=== PATIENT | female | born 1975 | race African-American/Black ===

== ENCOUNTER 2016-12-20 10:51 | Emergency (ER) | payer SELFPAY ==
[2016-12-20] MEDS ORDERED: ONDANSETRON 4 MG TAB.RAPDIS PO ONE (11:00)
[2016-12-20 11:27] LABS: ABSOLUTE EOSINOPHILS # (AUTO) 0.1 10^3/uL (0.0-0.6); ABSOLUTE LYMPHOCYTES (AUTO) 2.3 10^3/uL (0.5-4.7); ABSOLUTE MONOCYTES (AUTO) 0.5 10^3/uL (0.1-1.4); ABSOLUTE NEUT (AUTO) 5.7 10^3/uL (1.7-8.2); BASOPHILS % (AUTO) 0.2 % (0-2); EOSINOPHILS % (AUTO) 0.6 % (0-6); HEMATOCRIT 39.5 % (36.0-47.0); HEMOGLOBIN 12.5 g/dL (12.0-15.5); LYMPHOCYTES % (AUTO) 27.3 % (13-45); MEAN CORPUSCULAR HGB CONC 31.6 g/dL (32.0-36.0); MEAN CORPUSCULAR VOLUME 73 fl (80-97); MONOCYTES % (AUTO) 5.6 % (3-13); RED BLOOD COUNT 5.43 10^6/uL (3.72-5.28); SEGMENTED NEUTROPHILS % (AUTO) 66.3 % (42-78); WHITE BLOOD COUNT 8.6 10^3/uL (4.0-10.5)
[2016-12-20 11:45] LABS: ALANINE AMINOTRANSFERASE 26 U/L (9-52); ALBUMIN 4.2 g/dL (3.5-5.0); ALKALINE PHOSPHATASE 64 U/L (38-126); ANION GAP 13 (5-19); ASPARTATE AMINO TRANSFERASE 17 U/L (14-36); BILIRUBIN,DIRECT 0.3 mg/dL (0.0-0.4); BILIRUBIN,TOTAL 0.5 mg/dL (0.2-1.3); BLOOD UREA NITROGEN 5 mg/dL (7-20); CALCIUM 9.1 mg/dL (8.4-10.2); CARBON DIOXIDE 25 mmol/L (22-30); CHLORIDE 102 mmol/L (98-107); CREATININE RESULT 0.68 mg/dL (0.52-1.25); GLUCOSE 135 mg/dL (75-110); LIPASE 70.3 U/L (23-300); POTASSIUM 4.1 mmol/L (3.6-5.0); SODIUM 139.5 mmol/L (137-145)
--- NOTE | 2016-12-20 11:50 | RADIOLOGY REPORT (SQ) ---
EXAM DESCRIPTION: KUB/ABDOMEN (SINGLE VIEW) COMPLETED DATE/TIME: 12/20/2016 11:33 am REASON FOR STUDY: abd pain COMPARISON: None. NUMBER OF VIEWS: One view. TECHNIQUE: Supine radiographic image of the abdomen acquired. LIMITATIONS: None. FINDINGS: BOWEL GAS PATTERN: Normal bowel gas pattern. No dilated loops. CALCIFICATIONS: No suspicious calcifications. SOFT TISSUES: No gross mass or suggestion of organomegaly. HARDWARE: Clips post bilateral tubal ligation BONES: No acute fracture. No worrisome bone lesions. OTHER: No other significant finding. IMPRESSION: NO RADIOGRAPHIC EVIDENCE FOR ACUTE ABDOMINAL DISEASE. TECHNICAL DOCUMENTATION: JOB ID: [id number] [employer]- All Rights Reserved
[2016-12-20 12:59] VITALS: BP 153/88
--- NOTE | 2016-12-20 13:02 | ER Document Report ---
ED General - General Chief Complaint: Abdominal Pain Stated Complaint: NAUSEA Time Seen by Provider: 12/20/16 11:00 TRAVEL OUTSIDE OF THE [place] IN LAST 30 DAYS: No - HPI Patient complains to provider of: Lower abdominal pain Notes: Patient is coming in for evaluation of lower abdominal pain and nausea. Patient states ongoing for the last 5 days. Patient denies being . Denies any recent travel denies any diarrhea. Patient states she is unable to remember what she had her last bowel movement. Patient denies fevers chills denies any recent antibiotics. Trauma - Related Data Allergies/Adverse Reactions: No Known Allergies Allergy (Verified 12/20/16 10:55) Past Medical History - Social History Smoking Status: Never Smoker Chew tobacco use (# tins/day): No Frequency of alcohol use: None Drug Abuse: None Family History: Reviewed & Not Pertinent Patient has suicidal ideation: No Patient has homicidal ideation: No - Past Medical History Cardiac Medical History: Denies: Hx Coronary Artery Disease, Hx Heart Attack, Hx Hypertension Pulmonary Medical History: Denies: Hx Asthma, Hx Bronchitis, Hx COPD, Hx Pneumonia Neurological Medical History: Denies: Hx Cerebrovascular Accident, Hx Seizures Renal/ Medical History: Denies: Hx Peritoneal Dialysis Musculoskeltal Medical History: Denies Hx Arthritis - Immunizations Hx Diphtheria, Pertussis, Tetanus Vaccination: Yes - 03/20/13 Review of Systems - Review of Systems Constitutional: No symptoms reported EENT: No symptoms reported Cardiovascular: No symptoms reported Respiratory: No symptoms reported Gastrointestinal: Abdominal pain Genitourinary: No symptoms reported Female Genitourinary: No symptoms reported Musculoskeletal: No symptoms reported Skin: No symptoms reported Hematologic/Lymphatic: No symptoms reported Neurological/Psychological: No symptoms reported Physical Exam - Vital signs Vitals: Temp Pulse Resp BP Pulse Ox 98.3 F 95 16 142/81 H 98 12/20/16 10:55 12/20/16 10:55 12/20/16 10:55 12/20/16 10:55 12/20/16 10:55 Interpretation: Normal - General General appearance: Appears well, Alert - HEENT Head: Normocephalic, Atraumatic Eyes: Normal Pupils: PERRL - Respiratory Respiratory status: No respiratory distress Chest status: Nontender Breath sounds: Normal Chest palpation: Normal - Cardiovascular Rhythm: Regular Heart sounds: Normal auscultation Murmur: No - Abdominal Inspection: Normal Distension: No distension Bowel sounds: Normal Tenderness: Nontender Organomegaly: No organomegaly - Back Back: Normal, Nontender - Extremities General upper extremity: Normal inspection, Nontender, Normal color, Normal ROM , Normal temperature General lower extremity: Normal inspection, Nontender, Normal color, Normal ROM , Normal temperature, Normal weight bearing. No: Humble's sign - Neurological Neuro grossly intact: Yes Cognition: Normal Orientation: AAOx4 Jayne Coma Scale Eye Opening: Spontaneous [place] Coma Scale Verbal: Oriented [place] Coma Scale Motor: Obeys Commands [place] Coma Scale Total: 15 Speech: Normal Motor strength normal: LUE, RUE, LLE, RLE Sensory: Normal - Psychological Associated symptoms: Normal affect, Normal mood - Skin Skin Temperature: Warm Skin Moisture: Dry Skin Color: Normal Course - Re-evaluation Re-evalutation: 12/20/16 18:42 The patient presents with abdominal pain without signs of peritonitis or other life-threatening or serious etiology. The patient appears stable for discharge and has been instructed to return immediately if the symptoms worsen in any way , or in 8-12hr if not improved for re-evaluation. The patient has been instructed to return if the symptoms worsen or change in any way. Patient x- ray does show constipation will give laxatives and nausea medication. Patient will be discharged home. - Vital Signs Vital signs: Temp Pulse Resp BP Pulse Ox 98.0 F 64 18 153/88 H 100 12/20/16 12:56 12/20/16 12:56 12/20/16 12:56 12/20/16 12:56 12/20/16 12:56 - Laboratory Result Diagrams: 12/20/16 11:09 12/20/16 11:09 Laboratory results interpreted by me: 12/20/16 12/20/16 11:09 11:09 RBC 5.43 H MCV 73 L MCH 23.0 L MCHC 31.6 L RDW 15.0 H BUN 5 L Glucose 135 H Discharge - Discharge Clinical Impression: Constipation Qualifiers: Constipation type: unspecified constipation type Qualified Code(s): K59.00 - Constipation, unspecified Abdominal pain Qualifiers: Abdominal location: unspecified location Qualified Code(s): R10.9 - Unspecified abdominal pain Condition: Good Disposition: HOME, SELF-CARE Instructions: Abdominal Pain ([facility]), Constipation ([facility]) Additional Instructions: Take medication as prescribed. You work today shows signs of constipation. Laboratory studies not reveal any critical pathology. Please make sure you drink plenty water to aid in constipation. Would recommend taking a stool softener or laxative. Need to take 1 of these [id number] we will prescribe Zofran for nausea. Please be aware that once she start taking a laxative or stool softener he may experience some increasing cramping and that this is the medication working to relieve herself of the overburden her stool. light diet no greasy fatty fried food for the next 24-48 hours Prescriptions: Docusate Sodium [Colace 100 mg Capsule] 100 mg PO BID #60 capsule Ondansetron [Zofran Odt 4 mg Tablet] 1 - 2 tab PO Q4H PRN #30 tab.rapdis PRN Reason: For Nausea/Vomiting Forms: Return to Work Referrals: RAHUL PEACOCK MD [Primary Care Provider] - Follow up as needed
== END 2016-12-20 13:02 | disposition home or self-care (01) ==
LOC: ER 10:51
DX: K59.00 Constipation, unspecified (principal); R10.30 Lower abdominal pain, unspecified; R11.0 Nausea
CPT/HCPCS: 99284; 36415; 84702; 83690; 85025; 80053; 74000; S0119

== ENCOUNTER → 2020-06-20 | Outpatient (CLI) | payer MEDICAID ==
--- NOTE | 2020-06-20 14:00 | RADIOLOGY REPORT (SQ) ---
EXAM DESCRIPTION: OS CALCIS/HEEL RIGHT IMAGES COMPLETED DATE/TIME: 06/20/2020 1:49 pm REASON FOR STUDY: PAIN RT HEEL M79.671 PAIN IN RIGHT FOOT COMPARISON: None. NUMBER OF VIEWS: Two views. TECHNIQUE: Plantar and lateral images acquired of the right calcaneous. LIMITATIONS: None. FINDINGS: MINERALIZATION: Normal. BONES: No acute fracture or dislocation. No worrisome bone lesions. Plantar calcaneal spur. JOINTS: No erosions. No negin-articular osteopenia. No chondrocalcinosis. SOFT TISSUES: No swelling. No calcifications. OTHER: No other significant finding. IMPRESSION: HEEL SPUR. NO ACUTE FINDINGS. TECHNICAL DOCUMENTATION: JOB ID: [id number] [employer]- All Rights Reserved Reading location - IP/workstation name: [email or web address]
== END ==
LOC: RAD 13:24
PROVIDERS: ATTEND Nurse Practitioner Family
DX: M77.31 Calcaneal spur, right foot (principal); M79.671 Pain in right foot